=== PATIENT | female | born 1970 | race Caucasian/White ===

== ENCOUNTER 2023-05-22 12:13 | Emergency (ER) | payer OTHER, SELFPAY ==
[2023-05-22 12:20] VITALS: BP 147/71
[2023-05-22 12:49] LABS: % Basophils 0.5 % (0-2); % Eosinophils 1.4 % (0-6); % Immature Granulocytes 0.3 % (0-0.5); % Lymphocytes 25.4 % (20.5-51.1); % Monocytes 7.6 % (1.7-9.3); % Neutrophils 64.8 % (42.2-75.2); Absolute Eosinophils 0.1 10^3/uL (0-0.7); Absolute Lymphocytes 1.6 10^3/uL (1.2-3.4); Absolute Monocytes 0.5 10^3/uL (0.1-0.6); Absolute Neutrophils 4.1 10^3/uL (1.4-6.5); Hematocrit 34.7 % (37.0-47.0); Mean Corp Hgb Conc. 31.7 g/dL (33.0-37.0); Mean Corpuscular Hgb 23.6 pg (27.0-31.0); Mean Corpuscular Volume 74.5 fL (81.0-99.0); Mean Platelet Volume 9.6 fL (7.4-10.4); Nucleated Red Blood Cells % 0 %; Platelet Count 314 10^3/uL (130-400); Red Blood Cell Count 4.66 10^6/uL (4.20-5.40); Red Cell Dist. Width 16.9 % (11.5-14.5); White Blood Cell Count 6.3 10^3/uL (4.8-10.8)
[2023-05-22 13:03] LABS: HCG, Serum Qualitative Screen Negative
[2023-05-22 13:04] LABS: Urine Albumin Negative (Neg - Trace); Urine Bilirubin Negative (Negative); Urine Character Clear (Clear); Urine Color Yellow; Urine Glucose Negative (Negative); Urine Ketone Negative (Negative); Urine Leukocyte Negative (Negative); Urine Nitrite Negative (Negative); Urine Occult Blood Negative (Negative); Urine Specific Gravity 1.015 (<1.030); Urine Urobilinogen Negative (Neg - 1+)
[2023-05-22 13:09] LABS: ALT (SGPT) 26 U/L (0-35); AST (SGOT) 33 U/L (14-36); Albumin 4.3 g/dl (3.5-5.0); Alkaline Phosphatase 97 U/L (38-126); Blood Urea Nitrogen 17 mg/dl (7-17); Calcium 9.1 mg/dl (8.4-10.2); Carbon Dioxide 27 mmol/L (22-30); Chloride 107 mmol/L (98-107); Glucose 105 mg/dl (70-99); Potassium 4.5 mmol/L (3.5-5.1); Sodium 137 mmol/L (135-145); Total Bilirubin 0.9 mg/dl (0.2-1.3); Total Protein 6.8 g/dl (6.3-8.2); eGFR > 60.00
--- NOTE | 2023-05-22 15:52 | ED.GENMED ---
History of Present Illness
General
Chief Complaint: Flank Pain
Source: patient
Exam Limitations: none
Time Seen by Provider: 05/22/23 15:26
Nursing documentation reviewed up to this point in time: agreed with
Travel History
Have you had any contact with someone who has COVID-19?: No
Do you have any symptoms of coronavirus? Fever > 100 degrees, chills, cough, shortness of breath, sore throat, loss of taste or smell, muscle aches, or headache?: No
History of Present Illness
History of Present Illness:
Patient is a 52 y.o female presenting for evaluation of acute onset right flank pain occurring earlier today. Pain started acutely about an hour ago while she was sitting in her desk chair and describes it as a sharp pain in right flank. She
denies any radiation around to abdomen. The pain lasted approximately 20 minutes and was associated with 1 episode of vomiting. Pain has since resolved and she has no current complaints. She denies any fever, chills, chest pain, shortness of
breath, abdominal pain, urinary symptoms. She has no history of kidney stones. She denies any recent trauma.
She is currently undergoing workup with her primary care provider for iron deficiency anemia.
Past History
Past History
ED Past Medical History: Other (endometriosis)
ED Past Surgical History: and Gynecological (Endometrial implants)
Social History
Tobacco: Non-smoker
Alcohol: None
Personal:
Living: with family
Employment: Employed
Phy Exam
Physical Exam
Physical Exam:
General: Well appearing and non-toxic, comfortably sitting in bed reading a book
Vitals: Vital signs stable, patient afebrile
HEENT: Atraumatic, normocephalic protecting airway
Neck: appears supple, no JVD
CV: Regular rate and rhythm, heart sounds normal, no evidence of cyanosis
Resp: No evidence of respiratory distress, lungs clear, no accessory muscle use
Abd: Soft, nontender, non-distended, no CVA tenderness
Extremities: No deformities
Back: No midline spinal tenderness, right low back nontender to palpation
Neuro: alert and oriented to person place time, speech normal, no focal motor deficit, no focal neurologic deficit
Psych: Normal affect
Skin: Intact, no rashes or ecchymoses
Course
Orders/Labs/Results
Orders:
Orders
05/22/23 12:21
CT Abd/pel Without Iv Or Oral Urgent
Comment:
Reason For Exam: right flank pain
05/22/23 12:27
Test Result ONCE
05/22/23 12:34
Complete Blood Count/With Diff Urgent
Comprehensive Metabolic Panel Urgent
HCG, Serum Qualitative Screen Urgent
Urinalysis Reflex To Culture Urgent
Date Specimen was Collected: 05/22/23
Time Specimen was Collected: 12:21
Abnormal Lab Results
05/22/23
12:34
Hgb 11.0 L g/dL
(12.0-16.0)
Hct 34.7 L %
(37.0-47.0)
MCV 74.5 L fL
(81.0-99.0)
MCH 23.6 L pg
(27.0-31.0)
MCHC 31.7 L g/dL
(33.0-37.0)
RDW 16.9 H %
(11.5-14.5)
Glucose 105 H mg/dl
(70-99)
05/22/23 12:34
05/22/23 12:34
Vital Signs
Initial and Last Documented VS:
Initial Vital Signs
Temp Pulse Resp BP Pulse Ox
97.8 F 73 17 147/71 99
05/22/23 12:20 05/22/23 12:20 05/22/23 12:20 05/22/23 12:20 05/22/23 12:20
Last Documented Vital Signs
Temp Pulse Resp BP Pulse Ox
97.8 F 73 17 147/71 99
05/22/23 12:20 05/22/23 12:20 05/22/23 12:20 05/22/23 12:20 05/22/23 12:20
MDM/Problems Addressed
Differential Diagnosis Includes:
Nephrolithiasis, UTI, muscular spasm
MDM/Problems Addressed:
Patient is 52-year-old female presenting for evaluation of sudden onset right flank pain that occurred 1 hour ago with 1 associated episode of vomiting. Symptoms last about 20 minutes and resolved. Patient is currently asymptomatic emergency
department, sitting comfortably. She denies any fever, chills, chest pain, shortness of breath, abdominal pain. No nausea vomiting. Physical exam as document above. She is very well-appearing, sitting comfortably reading book. Abdomen exam is
benign. She is soft and nontender in all 4 quadrants. She has no CVA tenderness bilaterally, no lower back or midline spinal tenderness. Given symptoms and severity of pain described�will get noncontrast CT of abdomen/pelvis. Will get basic labs
and urinalysis. Patient no acute distress and declining anything for pain currently.
CBC shows mild anemia hemoglobin of 11 consistent with iron deficiency anemia the patient is already being worked up for her primary care otherwise no clinically significant abnormalities. CMP without any clinically significant abnormalities. hCG
negative. Urinalysis without any blood or findings suggestive of infection.
CT shows no stones on right side. 3 nonobstructing stones were seen in the left kidney-not consistent with patient's symptoms. There was a 1.5 cm right ovarian cyst. Discussed findings with patient recommended follow-up with SORT MANAGER. She states
she does have a history of ovarian cysts and have had them imaged in the past.
She has remained asymptomatic since arrival to emergency department. She is in no acute distress. She is stable for discharge with supportive care, return precautions, primary care/SORT MANAGER follow-up. Patient is comfortable this plan. All is
answered.
Chronic conditions affecting care:
Iron deficiency anemia
Acute Exacerbation and/or Progression of Chronic Illness:
Flank pain, ovarian cyst
*Radiology
Radiology exam reviewed: preliminary read by ED provider and radiology read reviewed
*Pulse Oximetry
Patient hypoxic: no
*Director Of Brand Marketing Interpretation
Rate: Director Of Brand Marketing- N/A
*Critical Care Note
Total Time (30-74mins, 75-104mins- exclusive of procedures): Not Applicable
ED Attending Note
-
Portions of this chart may have been created with voice recognition software.� Occasional wrong word or��sound alike� substitutions may have occurred due to the inherent limitations of voice recognition software.
Discharge Plan
Departure
Patient Disposition: Home (Routine Discharge)
Date of Disposition: 05/22/23
Time of Disposition: 17:13
Patient with high blood pressure during this ER visit?: Yes
Condition: Good
Covid-19: Not Applicable
Discharge Problem:
Right flank pain
Instructions: Flank Pain (DC), Ovarian Cyst (DC), BLOOD PRESSURE
Referrals:
Kelsey Daniels DO [Active] - Follow up in 1 week
Charleen Campo DO [Family Provider] -
Activity Restrictions/Additional Instructions:
- Return to the emergency department with any chest pain, shortness of breath, high fevers, severe abdominal pain, intractable vomiting, worsening current symptoms, or any other concerns
-As discussed�there was a 1.5 cm cyst on your right ovary. You should follow-up SORT MANAGER for further evaluation/management.
-As discussed�the CT scan performed today showed some evidence of constipation. You can take MiraLAX for the next week. Follow package instructions for dosing.
Interventions
Interventions:
*General Assessment Last Done: 05/22/23 17:34
*Nursing Disposition Last Done: 05/22/23 17:34
ED-Female Genitourinary Assessment Last Done: 05/22/23 15:20
Discharge Date and Time
Discharge Date/Time: 05/22/23 17:34
== END 2023-05-22 17:34 | disposition home or self-care (01) ==
LOC: EMR 12:13
PROVIDERS: Emergency Medicine; EMERGENCY PHYSICIAN Emergency Medicine; FAMILY PHYSICIAN Family Medicine
DX: R10.9 Unspecified abdominal pain (principal); R11.10 Vomiting, unspecified; D50.9 Iron deficiency anemia, unspecified; N83.201 Unspecified ovarian cyst, right side; R03.0 Elevated blood-pressure reading, without diagnosis of hypertension
CPT/HCPCS: 99284; 74176; 80053; 81003; 84703; 85025

== ENCOUNTER → 2023-07-03 18:22 | Outpatient (REF) | payer OTHER, SELFPAY | LOC: MRI 18:22 | PROVIDERS: ATTENDING PHYSICIAN Internal Medicine Gastroenterology; FAMILY PHYSICIAN Family Medicine | DX: R10.13 Epigastric pain (principal) | CPT/HCPCS: 74181 ==

== ENCOUNTER → 2024-07-23 10:08 | Outpatient (REF) | payer OTHER, SELFPAY | LOC: WDC 10:08 | PROVIDERS: ATTENDING PHYSICIAN Student in an Organized Health Care Education/Training Program; FAMILY PHYSICIAN Family Medicine | DX: N64.59 Other signs and symptoms in breast (principal); R59.9 Enlarged lymph nodes, unspecified | CPT/HCPCS: 76642; 77062; 77066 ==

== ENCOUNTER → 2024-08-06 16:19 | Outpatient (REF) | payer OTHER, SELFPAY | LOC: RAD 16:19 | PROVIDERS: ATTENDING PHYSICIAN Student in an Organized Health Care Education/Training Program; FAMILY PHYSICIAN Family Medicine | DX: N92.0 Excessive and frequent menstruation with regular cycle (principal) | CPT/HCPCS: 76830; 76856 ==

== ENCOUNTER → 2024-09-29 11:07 | Outpatient (REF) | payer OTHER, SELFPAY | LOC: RAD 11:07 | PROVIDERS: ATTENDING PHYSICIAN Student in an Organized Health Care Education/Training Program; FAMILY PHYSICIAN Family Medicine | DX: N83.291 Other ovarian cyst, right side (principal) | CPT/HCPCS: 71260; 74177; Q9967 ==

== ENCOUNTER 2024-11-02 14:12 | Emergency (ER) | payer OTHER, SELFPAY ==
[2024-11-02 14:19] VITALS: BP 153/94
[2024-11-02 14:54] LABS: Hematocrit 39.8 % (37.0-47.0); Hemoglobin 13.0 g/dL (12.0-16.0); Mean Corp Hgb Conc. 32.7 g/dL (33.0-37.0); Mean Corpuscular Volume 85.4 fL (81.0-99.0); Nucleated Red Blood Cells % 0 %; Platelet Count 282 10^3/uL (130-400); Red Cell Dist. Width 12.0 % (11.5-14.5)
[2024-11-02 15:04] LABS: ALT (SGPT) 24 U/L (0-35); AST (SGOT) 27 U/L (14-36); Albumin 5.0 g/dl (3.5-5.0); Alkaline Phosphatase 67 U/L (38-126); Blood Urea Nitrogen 18 mg/dl (7-17); Calcium 9.9 mg/dl (8.4-10.2); Carbon Dioxide 29 mmol/L (22-30); Chloride 106 mmol/L (98-107); Glucose 105 mg/dl (70-99); Potassium 4.2 mmol/L (3.5-5.1); Sodium 141 mmol/L (135-145); Total Protein 7.4 g/dl (6.3-8.2); eGFR > 60.00
[2024-11-02 15:14] LABS: Troponin I < 0.012 ng/ml
[2024-11-02 16:25] VITALS: BP 139/88
--- NOTE | 2024-11-02 16:53 | ED.GENMED ---
History of Present Illness
General
Chief Complaint: Cardiac Symptoms
Source: patient and spouse
Time Seen by Provider: 11/02/24 16:16
History of Present Illness
History of Present Illness:
The patient is a 54-year-old female who presents with an episode of a rapid heartbeat, described as 'thundering,' accompanied by lightheadedness and dizziness. The palpitations lasted approximately 45 minutes, ceasing spontaneously by the time she
arrived at the emergency department. The patient notes that these episodes have occurred intermittently since May 2013, typically lasting about two minutes. This particular episode was longer than usual. She reported experiencing the sensation
of an irregular heartbeat during the episode. The patient also mentioned having undergone cardiological evaluations, including an echocardiogram and an electrocardiogram, with a past diagnosis of premature atrial contractions. Additionally,
laboratory tests, including thyroid function, were conducted in the past and reported as unremarkable. She has participated in regular activities like running but noted having taken a month-long break.
Past History
Past History
ED Past Medical History: Other (endometriosis)
ED Past Surgical History: and Gynecological (Endometrial implants)
Social History
Tobacco: Non-smoker
Alcohol: None
Personal:
Living: with family
Employment: Employed
Phy Exam
Physical Exam
Physical Exam:
General: Awake, Alert, Oriented X3. No acute distress.
Vitals: unremarkable
Head: Atraumatic
Eyes: Pupils equal, EOMI
Throat: Airway intact, no exudates
Neck: Trachea midline
Lungs: Clear and equal b/l
Heart: Regular rate, no murmurs
Abd: Soft, Nontender, No pulsatile mass
Rectal:
Neuro: Cranial nerves intact, muscle strength equal bilaterally, cerebellar exam normal
Skin: Warm, dry, no rash
Extremities: pulses equal b/l, no edema
Course
Orders/Labs/Results
Orders:
Orders
11/02/24 14:21
Electrocardiogram (*1) Urgent
Reason for Study: Chest Pain
EKG- Treatment ONCE
11/02/24 14:33
Complete Blood Count/With Diff Urgent
Comprehensive Metabolic Panel Urgent
TSH Reflex To Free T4 Urgent
Troponin I Urgent
Abnormal Lab Results
11/02/24
14:33
MCHC 32.7 L g/dL
(33.0-37.0)
MPV 10.5 H fL
(7.4-10.4)
Lymphocytes % 19.0 L %
(20.5-51.1)
BUN 18 H mg/dl
(7-17)
Glucose 105 H mg/dl
(70-99)
11/02/24 14:33
11/02/24 14:33
Vital Signs
Initial and Last Documented VS:
Initial Vital Signs
Temp Pulse Resp BP Pulse Ox
98.1 F 86 18 153/94 99
11/02/24 14:19 11/02/24 14:19 11/02/24 14:19 11/02/24 14:19 11/02/24 14:19
Last Documented Vital Signs
Temp Pulse Resp BP Pulse Ox
98.1 F 69 16 126/77 99
11/02/24 14:19 11/02/24 18:09 11/02/24 18:09 11/02/24 18:08 11/02/24 18:09
MDM/Problems Addressed
Differential Diagnosis Includes:
The Differential Diagnosis includes, in no particular order and is not limited to:
1. Atrial Fibrillation
2. Supraventricular Tachycardia
3. Premature Atrial Contractions
4. Anxiety-Induced Palpitations
5. Hyperthyroidism
6. Electrolyte Imbalance
MDM/Problems Addressed:
Patient had a rapid heart rate but converted shortly after arrival here to the emergency room. She is in sinus rhythm upon my evaluation. EKG that was obtained in triage shows sinus rhythm. Recommend follow-up with her reamer hand as an
outpatient. Recommend further Holter monitor or perhaps patient could consider something like an Apple Watch or other device that would allow her to obtain a rhythm strip when she has symptoms.
*Pulse Oximetry
SaO2: 100
Oxygen Mode of Delivery: Room air
Patient hypoxic: no
*EKG
Interpreted by ED Provider?: Yes
Heart Rate: 85
Rate: normal
Rhythm: sinus
[place]: normal axis
Interval: normal interval
QRS Pattern: normal QRS
Ischemia: no ischemia
*Polymer Materials Consultant Interpretation
Rate: normal
Interpretation: normal
Rhythm: sinus
*Critical Care Note
Total Time (30-74mins, 75-104mins- exclusive of procedures): Not Applicable
ED Attending Note
-
Portions of this chart may have been created with voice recognition software.� Occasional wrong word or��sound alike� substitutions may have occurred due to the inherent limitations of voice recognition software.
Discharge Plan
Departure
Patient Disposition: Home (Routine Discharge)
Date of Disposition: 11/02/24
Time of Disposition: 17:46
Patient with high blood pressure during this ER visit?: No
Condition: Good
Discharge Problem:
Heart palpitations
Instructions: Heart Palpitations
Referrals:
Charleen Campo DO [Family Provider, Family Practice]
Activity Restrictions/Additional Instructions:
I suspect you are suffering from either PSVT (paroxysmal supraventricular tachycardia) or atrial fibrillation. I am happy that your symptoms resolved on their own but unfortunately we did not capture what was going on with her EKG. You are stable
for discharge. Follow-up with your reamer hand. Consider the use of an Apple Watch or similar device to record your heart rhythm if you have another event.
Interventions
Interventions:
*Risk Screen - Suicide Last Done: 11/02/24 14:19
*General Assessment Last Done: 11/02/24 14:19
*Neglect/Abuse Screening Last Done: 11/02/24 16:26
*ED- Fall Risk Assessment Last Done: 11/02/24 16:12
*ED COVID-19 Vaccine History Last Done: 11/02/24 16:12
*Nursing Disposition Last Done: 11/02/24 18:20
ED- Pulmonary Assessment Last Done: 11/02/24 16:12
ED- Cardiac Assessment Last Done: 11/02/24 16:12
Discharge Date and Time
Discharge Date/Time: 11/02/24 18:20
Print Language: NIUEAN
[2024-11-02 17:09] VITALS: BP 127/84
[2024-11-02 18:08] VITALS: BP 126/77
== END 2024-11-02 18:20 | disposition home or self-care (01) ==
LOC: EMR 14:12
PROVIDERS: EMERGENCY PHYSICIAN Emergency Medicine; FAMILY PHYSICIAN Family Medicine
DX: R00.2 Palpitations (principal)
CPT/HCPCS: 99284; 80053; 84443; 84484; 85025; 93005

== ENCOUNTER 2024-12-03 01:41 | Emergency (ER) | payer OTHER, SELFPAY ==
[2024-12-03 01:54] VITALS: BP 153/98
[2024-12-03 01:56] VITALS: BMI 24.0
[2024-12-03 02:00] VITALS: BP 150/88
[2024-12-03 02:39] LABS: Troponin I < 0.012 ng/ml
[2024-12-03 02:41] LABS: ALT (SGPT) 22 U/L (0-35); AST (SGOT) 25 U/L (14-36); Albumin 4.2 g/dl (3.5-5.0); Alkaline Phosphatase 62 U/L (38-126); Blood Urea Nitrogen 14 mg/dl (7-17); Calcium 9.5 mg/dl (8.4-10.2); Carbon Dioxide 26 mmol/L (22-30); Chloride 112 mmol/L (98-107); Estimated Creatinine Clearance 103 ml/min; Glucose 112 mg/dl (70-99); Potassium 3.6 mmol/L (3.5-5.1); Sodium 142 mmol/L (135-145); Total Protein 6.4 g/dl (6.3-8.2); eGFR > 60.00
--- NOTE | 2024-12-03 02:57 | ED.GENMED ---
History of Present Illness
General
Chief Complaint: Heart Rate Problem
Source: patient and previous hospital records (ED visit for similar complaint 1 month ago.)
Exam Limitations: none
Time Seen by Provider: 12/03/24 01:51
Nursing documentation reviewed up to this point in time: agreed with
History of Present Illness
History of Present Illness:
This is a 54-year-old woman with history of intermittent palpitations that initially began May 2023. She does follow with a bandoleer packer at [place], Dr. Leslie and thus far has undergone unremarkable stress test, unremarkable
echocardiogram and unremarkable Holter monitor/event monitor showing occasional PACs but no tachycardia. She admits that she was asymptomatic during Holter monitor.
Presented to this ED 1 month ago with complaints of similar palpitations that lasted longer than her usual 2 to 3 minutes and accompanied with chest pain, diaphoresis. Palpitations resolved just prior to arrival in edition EKG showed normal sinus
rhythm.
She has had more frequent episodes generally brief in nature but tonight palpitations began around 12:45 AM accompanied with left-sided chest pain radiating to her left arm with mild paresthesia of her left arm. Palpitations persisted and thus she
presented to this ED with initial EKG showing SVT with heart rate of 195. This is the first time arrhythmia has been captured on EKG.
Palpitations resolved while patient being placed in exam room.
shield cleaner now shows normal sinus rhythm. Chest pain has promptly resolved as well.
She takes no medicines on a daily basis. She denies alcohol or drug use.
She does admit to significant ongoing stress recently and believes stress may be adding to increased episodes of palpitations.
Prior ED visit from 1 month ago reviewed. Unremarkable laboratory studies including unremarkable thyroid function.
Past History
Past History
ED Past Medical History: Arrthythmia (Intermittent palpitations-SVT noted on EKG December 03, 2024) and Other (endometriosis)
ED Past Surgical History: and Gynecological (Endometrial implants)
Social History
Tobacco: Non-smoker
Alcohol: None
Drug: None
Personal:
Living: with family
Employment: Employed
Family History
Family History: Other (Noncontributory)
Phy Exam
Physical Exam
Physical Exam:
GENERAL: 54-year-old woman appears her stated age, awake and alert, pleasant, mildly anxious but easily communicative. is accompanying.
EYE: anicteric
NECK: Supple, nontender, no meningismus, no significant adenopathy.
ENT: oral mucosa is moist. No rhinorrhea.
CARDIAC: Regular rate and rhythm. no murmur.
LUNGS: Clear breath sounds bilaterally, no acute respiratory distress, no wheezes/rales/rhonchi
ABDOMEN: Soft, nondistended, without focal tenderness
NEUROLOGICAL: Alert and oriented x3, no focal neuro deficits.
SKIN: Warm and dry, normal color, skin intact. No rash.
MUSCULOSKELETAL: No C/C/E. peripheral pulses are full and equal b/l. No palpable tenderness.
PSYCH: Normal and appropriate interaction.
Course
Orders/Labs/Results
Orders:
Orders
12/03/24 01:42
Electrocardiogram (*1) Urgent
Reason for Study: Chest Pain
EKG- Treatment ONCE
12/03/24 01:55
EKG [Electrocardiogram (*1)] Urgent
Reason for Study: Abnormal EKG
12/03/24 01:56
EKG- Treatment ONCE
12/03/24 02:07
Comprehensive Metabolic Panel Urgent
Troponin I Urgent
12/03/24 03:57
Troponin I Urgent
Abnormal Lab Results
12/03/24
02:07
Chloride 112 H mmol/L
(98-107)
Glucose 112 H mg/dl
(70-99)
12/03/24 01:42
12/03/24 02:07
Vital Signs
Initial and Last Documented VS:
Initial Vital Signs
Pulse Resp
194 28
12/03/24 01:46 12/03/24 01:46
Last Documented Vital Signs
Temp Pulse Resp BP Pulse Ox
97.8 F 72 15 114/81 97
12/03/24 01:56 12/03/24 05:00 12/03/24 05:00 12/03/24 05:00 12/03/24 05:00
MDM/Problems Addressed
Differential Diagnosis Includes:
Intermittent palpitations since May 2023. Thus far unremarkable cardiac workup including unremarkable stress test, echocardiogram, Holter monitor.
Recurrent palpitations tonight, persistent accompanied with chest pain and initial EKG revealing SVT with mild ST depression inferolaterally.
SVT is likely cause for her intermittent palpitations.
Accompanied with chest pain tonight thus concern for rate related/demand ischemia.
Will continue spray operator and will check troponin as well as repeat chemistries assess for potential electrolyte abnormality.
Unremarkable CBC and thyroid function 1 month ago, no indication to repeat.
She remains hemodynamically stable.
Chronic conditions affecting care: Arrhythmia
Acute Exacerbation and/or Progression of Chronic Illness: Arrhythmia
*Pulse Oximetry
SaO2: 96
Oxygen Mode of Delivery: Room air
Patient hypoxic: no
*EKG
Interpreted by ED Provider?: Yes
Interpretation: abnormal
Comparison EKG: changes noted (SVT has replaced normal sinus rhythm noted on EKG October 2024. Inferolateral ST depression is new as well.)
Rate: tachycardiac
Rhythm: SVT
[place]: normal axis
Interval: normal interval
QRS Pattern: normal QRS
Ischemia: ST depression
*Naval Engineer Interpretation
Rate: normal
Interpretation: normal
Rhythm: sinus
*Critical Care Note
Total Time (30-74mins, 75-104mins- exclusive of procedures): Not Applicable
Update Note
Update Note:
05:00
Monitor continues to show normal sinus rhythm.
Patient remains comfortable, asymptomatic.
Troponin x 2 negative.
Will discharge to home with recommendations for prompt follow-up with her bandoleer packer at [place], Dr. Leslie.
Return precautions discussed.
ED Attending Note
-
Portions of this chart may have been created with voice recognition software.� Occasional wrong word or��sound alike� substitutions may have occurred due to the inherent limitations of voice recognition software.
Discharge Plan
Departure
Patient Disposition: Home (Routine Discharge)
Date of Disposition: 12/03/24
Time of Disposition: 05:00
Patient with high blood pressure during this ER visit?: No
Condition: Good
Discharge Problem:
Paroxysmal supraventricular tachycardia
Instructions: Supraventricular tachycardia (SVT)
Prescriptions:
No Action
No Current Medications
0
Referrals:
Charleen Campo DO [Family Provider, Family Practice]
Jett Leslie MD [Non-Admitting Privileges] - Call in 1-3 days for appt
Interventions
Interventions:
*Risk Screen - Suicide Last Done: 12/03/24 01:56
*General Assessment Last Done: 12/03/24 01:56
*Neglect/Abuse Screening Last Done: 12/03/24 01:56
*ED- Fall Risk Assessment Last Done: 12/03/24 01:56
*ED COVID-19 Vaccine History Last Done: 12/03/24 01:56
ED- Cardiac Assessment Last Done: 12/03/24 03:00
ED- Pulmonary Assessment Last Done: 12/03/24 03:00
Discharge Date and Time
Print Language: ITALIAN
[2024-12-03 03:02] VITALS: BP 129/83
[2024-12-03 04:02] VITALS: BP 123/85
[2024-12-03 04:44] LABS: Troponin I < 0.012 ng/ml
[2024-12-03 05:00] VITALS: BP 114/81
== END 2024-12-03 05:19 | disposition home or self-care (01) ==
LOC: EMR 01:41
PROVIDERS: EMERGENCY PHYSICIAN Emergency Medicine; FAMILY PHYSICIAN Family Medicine
DX: I47.10 Supraventricular tachycardia, unspecified (principal)
CPT/HCPCS: 99284; 80053; 84484; 93005